=== PATIENT | female | born 1940 | race Caucasian/White ===

== ENCOUNTER 2019-04-12 08:43 | Observation (INO) | payer MEDICARE ==
[~2019-04-12] VITALS: Ht 167.6 cm; Wt 65.3 kg
[2019-04-12] VITALS (11 sets, daily range): BP systolic 143–172; BP diastolic 48–72
[~2019-04-12 08:43] MED LIST: ASPI-630 PO; GABA600T7 PO; GLIP10TA24 PO; GLIP5TAB22 PO; HYDROmorphone 2 MG/ML VIAL IV PRN; INSU100V13 SQ; IV RINGERS,LACTATED 1000ML 1,000 ML IV SCH; LIDOCAINE 1% PF 2 ML VIAL. ID PRN; LINA5TAB PO; LIPITOR80 MG PO; LOSA100T14 PO; METO-239 PO; MORPHINE SULFATE 2 MG/ML VIAL. IV PRN; ONDANSETRON PF 4 MG/2 ML VIAL. IV PRN; PROCHLORPERAZINE 10 MG/2 ML VIAL. IV PRN; fentaNYL PF VIAL 100 MCG/2 ML VIAL IV PRN
[2019-04-12] MEDS ORDERED: LIDOCAINE 2% JELLY 6ML IN APPLICATOR. ONE (09:00)
[2019-04-12] MEDS ORDERED: WATER FOR INJECTION STERILE IRR ONE (09:00)
[2019-04-12] MEDS ORDERED: MITOMYCIN IRR ONE (09:00)
[2019-04-12] MEDS ORDERED: IOHEXOL 300 MG/ML 50 ML VIAL. ONE (09:00)
[2019-04-12] MEDS ORDERED: LIDOCAINE 2% PF 5 ML VIAL. ONE (09:31)
[2019-04-12] MEDS ORDERED: PROPOFOL 20 ML IV ONE (09:31)
[2019-04-12] MEDS ORDERED: ONDANSETRON PF 4 MG/2 ML VIAL. ONE (09:31)
[2019-04-12] MEDS ORDERED: DEXAMETHASONE SOD PHOS 4 MG/ML VIAL ONE (09:31)
[2019-04-12] MEDS ORDERED: INSULIN LISPRO 100 UNIT/ML 3ML VIAL for OP,RR ONLY. SQ PRN (10:00)
[2019-04-12] MEDS ORDERED: ceFAZolin 1GM IVPB FOR OMNI 1 GM/50 ML BAG IV ONE (11:00)
[2019-04-12] MEDS ORDERED: fentaNYL PF VIAL 100 MCG/2 ML VIAL ONE ×2 (11:30→12:32)
[2019-04-12] MEDS ORDERED: SEVOFLURANE 61 TO 120 MINUTES. IH ONE (11:31)
[2019-04-12] MEDS ORDERED: POTASSIUM CL 20MEQ-0.45% NACL 1,000 ML IV PRN (12:01)
--- NOTE | 2019-04-12 12:01 | PDOC4 ---
OPERATIVE NOTE Date: Date: Apr 12, 2019 Pre-Op Diagnosis: TCCB, multi-focal Post-Op Diagnosis: same Procedure Performed: Cysto, TURBT (7cm) Surgeon: Michel Anesthesia Type: gen Blood Loss: 50cc Specimans Obtained: bladder tumor chips Findings: Multiple tumors predominately on L floor, L lateral wall, and L dome of bladder. Both UO's identified and were free of obvious involvement. The tumors were predominately pedunculated but did have thick bases. There was large amount of shallow ("cobble-stone") appearing budding tumors that were fulgurated. Complications: none Operative Note: Gen Anes; IV Abx, pt placed in lithotomy Cysto revealed above findings. A 24-Fr Resectoscope was inroduced and the tumors were resected, starting at the floor of the bladder and working up the lateral wall to the dome. There were 2- 3 dominant tumors on the L lat trigone and L lat wall that required loop resection. Care was taken to avoid perforation of the bladder wall. Muscle was clearly included in the specimen from the base of the largest trigonal tumor. Small and shallow tumors on lateral wall, dome , and R lateral wall were fulgurated only. All fragments were removed and collected. At conclusion, the bladder appeared hemostatic and there were no tumors identified. The scope was removed and bimanual exam revealed no masses palpable. A 20-Fr 3-way rose with the irrigation port plugged was introduced and the bladder drained. The drainage was clear. An instillation of 20 mg Mitomycin in 50 cc sterile flud was then introduced into the bladder and the rose was clamped. The drainage bag was connected and pt was the transferred to / She tolerated procedure well. Will unclamp rose in 1 hr and the observe. She may go home later today if clear. If needed, she will be kept overnight for observation. JOHN OLIVA MD Apr 12, 2019 12:01
[2019-04-12] MEDS ORDERED: oxyCODONE IR 5 MG TABLET PO PRN (12:15)
[2019-04-12] MEDS ORDERED: NALOXONE 0.4 MG/ML VIAL. IV PRN (12:15)
[2019-04-12] MEDS ORDERED: MORPHINE SULFATE 2 MG/ML VIAL. IV PRN (12:15)
[2019-04-12] MEDS ORDERED: HYDROcodone/APAP 5/325MG 1 TAB TABLET PO PRN (12:15)
[2019-04-12] MEDS ORDERED: ONDANSETRON PF 4 MG/2 ML VIAL. IV PRN ×3 (12:15)
[2019-04-12] MEDS ORDERED: 0.9 % SODIUM CHLORIDE 10 ML DISP.SYRIN. IV PRN (12:15)
[2019-04-12] MEDS ORDERED: PROCHLORPERAZINE 10 MG/2 ML VIAL. ONE (12:19)
[2019-04-12] MEDS: HYDROcodone/APAP 5/325MG 1 TAB TABLET PO PRN ×2 (14:38→21:20)
[2019-04-12] MEDS ORDERED: glipiZIDE 5 MG TABLET PO SCH ×2 (16:30→17:00)
--- NOTE | 2019-04-12 16:31 | PDOC ---
PROGRESS NOTE CHIEF COMPLAINT: no c/o's; is sitting up and eating SUBJECTIVE: ROS: ROS: RESPIRATORY: Shortness of breath denies. Cough denies. UROLOGY: Denies blood in urine. Denies difficulty urinating rose is draining well HPI: Duration: [] Quality: [] Severity: [] Site/Location: Yennifer is matthews colored without clots; she is not on CBI; [] OBJECTIVE: Vital Signs: Vital Signs Date Time Temp Pulse Resp B/P (MAP) Pulse Ox O2 Delivery O2 Flow Rate FiO2 04/12/19 15:15 67 18 161/65 (97) 97 Room Air 04/12/19 14:45 75 18 159/51 (87) 97 Room Air 04/12/19 14:38 Nasal Cannula 2.0 04/12/19 14:15 60 18 172/48 (89) 96 Room Air 04/12/19 14:00 58 18 171/49 (89) 97 Room Air 04/12/19 13:45 64 18 147/53 (84) 97 Room Air 04/12/19 13:30 62 18 171/51 (91) 96 Room Air 04/12/19 13:15 98.0 67 18 154/54 (87) 92 Room Air 98.0 04/12/19 13:10 Nasal Cannula 2.0 04/12/19 12:48 98.6 61 160/59 96 Room Air 98.6 Simple Mask 04/12/19 12:36 15 96 Room Air 04/12/19 12:33 98.6 63 15 160/44 94 98.6 04/12/19 12:18 98.6 53 15 157/67 100 98.6 04/12/19 12:03 Room Air 04/12/19 12:03 98.6 64 15 172/93 100 Simple Mask 10 98.6 04/12/19 09:58 97.0 65 16 132/52 96 Room Air 97.0 04/12/19 09:57 97 65 16 96 97.0 PHYSICAL EXAM: Physical Exam: General: Pleasant, no acute distress, well groomed Eyes: conjunctiva anicteric, eyes full range of motion ENT: moist oral mucosa, normal dentition Neck: Trachea midline, no masses Respiratory: unlabored breathing, not using accessory muscles, no crackles or wheezes Cardiovascular: Regular rate and rhythm, no peripheral edema Abdomen: nontender, nondistended, no hepatosplenomegaly, no masses Skin: no rashes or skin lesions on visualized skin Psych: normal mood, affect. Alert and oriented x 3. LABS: Laboratory Tests Test 04/12/19 10:47 04/12/19 12:12 Glucose (Fingerstick) 152 mg/dL (70-99) 130 mg/dL (70-99) MEDICATIONS: Current Medications Medications (Trade) Dose Ordered Sig/Sherri Start Time Stop Time Status Last Admin Dose Admin Acetaminophen/ Hydrocodone Bitart (Lortab 5/325) 2 tab PRN Q4HRS PRN 04/12/19 12:15 Cefazolin Sodium 50 ml @ 100 mls/hr 1X PREOP PRN 04/12/19 06:00 04/12/19 18:00 04/12/19 10:35 100 MLS/HR Dexamethasone Sodium Phosphate (Decadron) 4 mg STK-MED ONCE 04/12/19 09:31 04/12/19 09:32 DC Fentanyl Citrate (Fentanyl 2ml Vial) 100 mcg STK-MED ONCE 04/12/19 12:32 04/12/19 12:33 DC Hydromorphone HCl (Dilaudid) 0.5 mg PRN Q10MIN PRN 04/12/19 06:30 04/13/19 06:29 Insulin Human Lispro (HumaLOG VIAL for OP,RR ONLY) 0-10 units PRN Q1HR PRN 04/12/19 10:00 04/13/19 09:59 04/12/19 09:50 4 UNIT Iohexol (Omnipaque 300 Mg/ml) 50 ml STK-MED ONCE 04/12/19 09:00 04/12/19 10:00 DC Lidocaine HCl (Glydo (Lidocaine) Jelly) 6 raj STK-MED ONCE 04/12/19 09:00 04/12/19 10:00 DC Lidocaine HCl (Lidocaine Pf 2% Vial) 5 ml STK-MED ONCE 04/12/19 09:31 04/12/19 09:32 DC Lidocaine HCl (Xylocaine-Mpf 1% 2ml Vial) 2 ml 1X PRN PRN 04/12/19 06:30 04/13/19 06:29 Linagliptin (Tradjenta) 5 mg DAILY 04/13/19 09:00 UNV Metoprolol Succinate (Toprol Xl) 25 mg DAILY 04/13/19 09:00 UNV Mitomycin 20 mg/ Sterile Water 50 ml @ 1,000 mls/hr 1X ONCE 04/12/19 09:00 04/12/19 09:03 DC Morphine Sulfate (Morphine Sulfate) 1 mg PRN Q1HR PRN 04/12/19 12:15 Naloxone HCl (Narcan) 0.1 mg PRN Q2MIN PRN 04/12/19 12:15 Non-Formulary Medication (Atorvastatin Calcium (Lipitor)) 40 mg HS 04/12/19 21:00 UNV Non-Formulary Medication (Gabapentin ) 300 mg TID 04/12/19 21:00 UNV Non-Formulary Medication (Glipizide (Glipizide Er)) 10 mg DAILYBFRSUP 04/12/19 17:00 UNV Non-Formulary Medication (Insulin Detemir (Levemir)) 25 unit HS 04/12/19 21:00 UNV Non-Formulary Medication (Losartan Potassium ) 100 mg DAILY 04/13/19 09:00 UNV Ondansetron HCl (Zofran) 4 mg PRN Q6HRS PRN 04/12/19 12:15 Oxycodone HCl (Roxicodone) 5 mg PRN Q3HRS PRN 04/12/19 12:15 Potassium Chloride/Sodium Chloride 1,000 ml @ 100 mls/hr Q10H PRN 04/12/19 12:01 04/12/19 14:30 100 MLS/HR Prochlorperazine Edisylate (Compazine) 10 mg STK-MED ONCE 04/12/19 12:19 04/12/19 12:20 DC Propofol 20 ml @ As Directed STK-MED ONCE 04/12/19 09:31 04/12/19 09:32 DC Ringer's Solution 1,000 ml @ 30 mls/hr Q24H 04/12/19 06:16 04/12/19 18:15 04/12/19 06:16 30 MLS/HR Sevoflurane (Ultane) 60 ml STK-MED ONCE 04/12/19 11:31 04/12/19 11:32 DC Sodium Chloride (Normal Saline Flush) 3 ml QSHIFT PRN 04/12/19 12:15 ASSESSMENT & PLAN will resume her home meds excepting ASA; cont rose and likely be able to send home in am if urine clear to pink. JOHN OLIVA MD Apr 12, 2019 16:31
--- NOTE | 2019-04-12 19:23 | NUR ---
pt arrived to unit at 1310 via bed from PACU in stable condition on RA. pt has family at bedside with call light within reach. pt is oriented but drowsy. pt is rating her pain 5/10. pt has 3-way rose catheter in place- pt bladder was infused with mitomycin therefore pt is in chemo precautions and CNAs were notified not to empty rose catheter. proper chemo ppe in pt room to properly dispose of urine. will notify night RN of procedure for disposing of urine. will continue to monitor. Addendum: 04/12/19 at 1929 by AUSTEN CONTE RN RN received report from WICHO Payne in PACU
[2019-04-12] MEDS: ATORVASTATIN CALCIUM 40 MG TABLET. PO SCH (21:20)
[2019-04-12] MEDS: GABAPENTIN 300 MG CAPSULE. PO SCH (21:20)
[2019-04-12] MEDS: INSULIN GLARGINE 300 UNITS/3 ML INSULN.PEN. SQ SCH (21:23)
[2019-04-13 03:29] VITALS: BP 138/52
[2019-04-13 07:00] VITALS: BP 170/59
[2019-04-13] MEDS: LINAGLIPTIN 5 MG TABLET PO SCH (08:58)
[2019-04-13] MEDS: LOSARTAN POTASSIUM 50 MG TABLET. PO SCH (08:58)
[2019-04-13] MEDS: METOPROLOL SUCC 24HR ER 25 MG TAB.ER.24H. PO SCH (08:59)
[2019-04-13] MEDS: glipiZIDE 5 MG TABLET PO SCH (08:59)
[2019-04-13] MEDS: GABAPENTIN 300 MG CAPSULE. PO SCH ×3 (09:00→21:24)
[2019-04-13 11:00] VITALS: BP 170/65
--- NOTE | 2019-04-13 11:37 | PDOC ---
PROGRESS NOTE CHIEF COMPLAINT: no c/o; eating bkf; wants to go home SUBJECTIVE: ROS: ROS: RESPIRATORY: Shortness of breath denies. Cough denies. UROLOGY: Denies blood in urine. Denies difficulty urinating HPI: one day s/p TURBT large BT Quality: [] Severity: [] Site/Location: [] OBJECTIVE: Vital Signs: Vital Signs Date Time Temp Pulse Resp B/P (MAP) Pulse Ox O2 Delivery O2 Flow Rate FiO2 04/13/19 08:59 74 170/59 04/13/19 08:58 74 170/59 04/13/19 07:00 97.8 74 16 170/59 (96) 97 Room Air 97.8 04/13/19 03:29 98.6 80 18 138/52 (80) 94 Room Air 98.6 04/12/19 23:19 98.0 82 18 143/49 (80) 93 Room Air 98.0 04/12/19 22:20 16 Room Air 04/12/19 21:20 18 Room Air 04/12/19 20:00 Room Air 04/12/19 19:25 97.8 81 20 160/52 (88) 93 Room Air 97.8 04/12/19 17:15 80 18 161/60 (93) 97 Room Air 04/12/19 16:15 83 18 160/72 (101) 97 Room Air 04/12/19 15:15 67 18 161/65 (97) 97 Room Air 04/12/19 14:45 75 18 159/51 (87) 97 Room Air 04/12/19 14:38 Nasal Cannula 2.0 04/12/19 14:15 60 18 172/48 (89) 96 Room Air 04/12/19 14:00 Nasal Cannula 2.0 04/12/19 14:00 58 18 171/49 (89) 97 Room Air 04/12/19 13:45 64 18 147/53 (84) 97 Room Air 04/12/19 13:30 62 18 171/51 (91) 96 Room Air 04/12/19 13:15 98.0 67 18 154/54 (87) 92 Room Air 98.0 04/12/19 13:10 Nasal Cannula 2.0 04/12/19 12:48 98.6 61 160/59 96 Room Air 98.6 Simple Mask 04/12/19 12:36 15 96 Room Air 04/12/19 12:33 98.6 63 15 160/44 94 98.6 04/12/19 12:18 98.6 53 15 157/67 100 98.6 04/12/19 12:03 Room Air 04/12/19 12:03 98.6 64 15 172/93 100 Simple Mask 10 98.6 I & O Intake and Output 04/13/19 06:59 Intake Total 2148.4 ml Output Total 2025 ml Balance 123.4 ml Intake Oral 600 ml IV Total 1548.4 ml Output Urine Total 2025 ml PHYSICAL EXAM: Physical Exam: General: Pleasant, no acute distress, well groomed Eyes: conjunctiva anicteric, eyes full range of motion ENT: moist oral mucosa, normal dentition Neck: Trachea midline, no masses Respiratory: unlabored breathing, not using accessory muscles, no crackles or wheezes Cardiovascular: Regular rate and rhythm, no peripheral edema Abdomen: nontender, nondistended, no hepatosplenomegaly, no masses Skin: no rashes or skin lesions on visualized skin Psych: normal mood, affect. Alert and oriented x 3. urine in tubing is pink LABS: Laboratory Tests Test 04/12/19 09:42 04/12/19 10:47 04/12/19 12:12 04/12/19 16:28 Glucose (Fingerstick) 181 mg/dL (70-99) 152 mg/dL (70-99) 130 mg/dL (70-99) 133 mg/dL (70-99) Test 04/12/19 21:11 04/13/19 07:45 Glucose (Fingerstick) 344 mg/dL (70-99) 219 mg/dL (70-99) MEDICATIONS: Current Medications Medications (Trade) Dose Ordered Sig/Sherri Start Time Stop Time Status Last Admin Dose Admin Acetaminophen/ Hydrocodone Bitart (Lortab 5/325) 2 tab PRN Q4HRS PRN 04/12/19 12:15 Atorvastatin Calcium (Lipitor) 40 mg QHS 04/12/19 21:00 04/12/19 21:20 40 MG Cefazolin Sodium (Ancef 1gm Ivpb For Omni) 1 gm STK-MED ONCE 04/12/19 11:00 04/13/19 08:16 DC Dexamethasone Sodium Phosphate (Decadron) 4 mg STK-MED ONCE 04/12/19 09:31 04/12/19 09:32 DC Fentanyl Citrate (Fentanyl 2ml Vial) 100 mcg STK-MED ONCE 04/12/19 12:32 04/12/19 12:33 DC Gabapentin (Neurontin) 300 mg TID 04/12/19 21:00 04/13/19 09:00 300 MG Glipizide (Glucotrol) 5 mg DAILYWSUP 04/13/19 17:00 Hydromorphone HCl (Dilaudid) 0.5 mg PRN Q10MIN PRN 04/12/19 06:30 04/13/19 06:29 DC Insulin Glargine (Lantus) 25 units QHS 04/12/19 21:00 04/12/19 21:23 25 UNITS Insulin Human Lispro (HumaLOG VIAL for OP,RR ONLY) 0-10 units PRN Q1HR PRN 04/12/19 10:00 04/13/19 09:59 DC 04/12/19 09:50 4 UNIT Iohexol (Omnipaque 300 Mg/ml) 50 ml STK-MED ONCE 04/12/19 09:00 04/12/19 10:00 DC Lidocaine HCl (Glydo (Lidocaine) Jelly) 6 raj STK-MED ONCE 04/12/19 09:00 04/12/19 10:00 DC Lidocaine HCl (Lidocaine Pf 2% Vial) 5 ml STK-MED ONCE 04/12/19 09:31 04/12/19 09:32 DC Lidocaine HCl (Xylocaine-Mpf 1% 2ml Vial) 2 ml 1X PRN PRN 04/12/19 06:30 04/13/19 06:29 DC Linagliptin (Tradjenta) 5 mg DAILY 04/13/19 09:00 04/13/19 08:58 5 MG Losartan Potassium (Cozaar) 100 mg DAILY 04/13/19 09:00 04/13/19 08:58 100 MG Metoprolol Succinate (Toprol Xl) 25 mg DAILY 04/13/19 09:00 04/13/19 08:59 25 MG Mitomycin 20 mg/ Sterile Water 50 ml @ 1,000 mls/hr 1X ONCE 04/12/19 09:00 04/12/19 09:03 DC Morphine Sulfate (Morphine Sulfate) 1 mg PRN Q1HR PRN 04/12/19 12:15 Naloxone HCl (Narcan) 0.1 mg PRN Q2MIN PRN 04/12/19 12:15 Ondansetron HCl (Zofran) 4 mg PRN Q6HRS PRN 04/12/19 12:15 Oxycodone HCl (Roxicodone) 5 mg PRN Q3HRS PRN 04/12/19 12:15 Potassium Chloride/Sodium Chloride 1,000 ml @ 100 mls/hr Q10H PRN 04/12/19 12:01 04/12/19 14:30 100 MLS/HR Prochlorperazine Edisylate (Compazine) 10 mg STK-MED ONCE 04/12/19 12:19 04/12/19 12:20 DC Propofol 20 ml @ As Directed STK-MED ONCE 04/12/19 09:31 04/12/19 09:32 DC Ringer's Solution 1,000 ml @ 30 mls/hr Q24H 04/12/19 06:16 04/12/19 18:15 DC 04/12/19 06:16 30 MLS/HR Sevoflurane (Ultane) 60 ml STK-MED ONCE 04/12/19 11:31 04/12/19 11:32 DC Sodium Chloride (Normal Saline Flush) 3 ml QSHIFT PRN 04/12/19 12:15 ASSESSMENT & PLAN will dc rose and send home tariq voiding ret next Mon to office to discuss path and planning will need CT for staging next week cautioned her to avoid strenuous activities until seen in office; drink plent water Rx's Cipro and Lortab resume all prev meds except ASA JOHN OLIVA MD Apr 13, 2019 11:37
--- NOTE | 2019-04-13 11:40 | NUR ---
SS following for discharge planning. SS reviewed pt chart. Pt is from home with spouse and is currently on room air. No discharge needs noted at this time. SS will continue to follow for discharge planning.
[2019-04-13] MEDS: HYDROcodone/APAP 5/325MG 1 TAB TABLET PO PRN (12:17)
[2019-04-13 15:00] VITALS: BP 168/58
[2019-04-13] MEDS ORDERED: glipiZIDE 5 MG TABLET PO SCH (17:00)
--- NOTE | 2019-04-13 18:06 | PATHOLOGY ---
[facility] Accession Number: [id number] . 01 Material submitted: . bladder - BLADDER TUMOR . 01 Clinical history: . None provided. . 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 SEE COMMENT. (JPM:kun; 04/13/2019) QMS/04/13/2019 . 02 Comment: Sections of the bladder tumor transurethral resection reveal a papillary high grade urothelial carcinoma showing foci of necrosis and coagulation artifact. There are several foci of tumor invasion of lamina propria. There is no definitive muscularis propria present in the specimen. . The case is also examined by Dr. Dodson, who concurs with the diagnosis. (JPM:kun; 04/13/2019) . 02 Electronically signed: . Francisco Encinas MD, Pathologist NPI- [id number] . 01 Gross description: . Received in formalin labeled "Kalpesh, Jennifer, bladder tumor" is a 4.0 x 2.5 x 0.5 cm aggregate of pink-cabezas friable soft tissue fragments. The specimen is submitted entirely in cassettes A1-A2. ([facility] [place]; 04/12/2019) SYC/SYC . 02 Microscopic: . . . 02 Pathologist provided ICD-10: C67.9 . 02 CPT . 646660 Specimen Comment: A courtesy copy of this report has been sent to Specimen Comment: [phone], . Specimen Comment: Report sent to / DR ZARATE Performed at: [address], [place], [place] [id number] MD Arturo Watkins MD Phone: [phone] Performed at: 02 [facility] [address] [place], [place] [id number] MD Francisco Encinas MD Phone: [phone]
[2019-04-13 19:00] VITALS: BP 168/66
[2019-04-13] MEDS ORDERED: PHENAZOPYRIDINE 200 MG TABLET. PO PRN (19:30)
[2019-04-13] MEDS: ATORVASTATIN CALCIUM 40 MG TABLET. PO SCH (21:24)
[2019-04-13] MEDS: INSULIN GLARGINE 300 UNITS/3 ML INSULN.PEN. SQ SCH (21:29)
[2019-04-13 23:00] VITALS: BP 152/56
[2019-04-14 03:00] VITALS: BP 169/58
[2019-04-14 07:00] VITALS: BP 156/60
[2019-04-14] MEDS ORDERED: DEXTROSE 50% 25 GM / 50ML DISP.SYRIN. IV PRN (09:30)
[2019-04-14] MEDS: LOSARTAN POTASSIUM 50 MG TABLET. PO SCH (09:44)
[2019-04-14] MEDS: glipiZIDE 5 MG TABLET PO SCH (09:46)
[2019-04-14] MEDS: GABAPENTIN 300 MG CAPSULE. PO SCH (09:46)
[2019-04-14] MEDS: METOPROLOL SUCC 24HR ER 25 MG TAB.ER.24H. PO SCH (09:46)
[2019-04-14] MEDS: LINAGLIPTIN 5 MG TABLET PO SCH (09:47)
[2019-04-14] MEDS: HYDROcodone/APAP 5/325MG 1 TAB TABLET PO PRN (09:53)
[2019-04-14 10:10] LABS: BASO # 0.1 x10^3/uL (0.0-0.2); BASO % 1 % (0-3); EOS % 0 % (0-3); HEMATOCRIT 37.8 % (36.0-47.0); HEMOGLOBIN 12.4 g/dL (12.0-15.5); LYMPH # 1.6 x10^3/uL (1.0-4.8); LYMPH % 11 % (24-48); MEAN CORPUSCULAR HEMOGLOBIN 31 pg (25-35); MEAN CORPUSCULAR HGB CONC 33 g/dL (31-37); MEAN CORPUSCULAR VOLUME 94 fL (79-100); MONO # 1.6 x10^3/uL (0.0-1.1); MONO % 12 % (0-9); NEUT # 10.7 x10^3uL (1.8-7.7); NEUT % 77 % (31-73); PLATELET COUNT 149 x10^3/uL (140-400); RED BLOOD COUNT 4.04 x10^6/uL (3.50-5.40); RED CELL DISTRIBUTION WIDTH 14.6 % (11.5-14.5); WHITE BLOOD COUNT 13.9 x10^3/uL (4.0-11.0)
--- NOTE | 2019-04-14 10:14 | PDOC2 ---
CONSULT Date of Consult Date of Consult DATE: 04/14/19 TIME: 10:10 Reason for Consult Reason for Consult: med mx, DM Referring Physician Referring Physician: Gillian Identification/Chief Complaint Chief Complaint bladder tumors, hemtauria Source Source: Caregiver, Chart review, Patient History of Present Illness Reason for Visit: Very pleasant 78-year-old white female, lots of family support, admitted under urology service for bladder tumors and underwent cystoscopy. Her chief complaint was gross hematuria. Underwent the procedure, was planned for discharge yest erday but had some gross hematuria post op. Hence three-way bladder irrigation done. Urology advice is okay to DC once urine is clear pink and that is the case. Hemoglobin stable. Patient has no pain, ambulating well and keeping food down. Multiple family members at bedside, agreeable and wants to discharge and okay with that Gibson on chart No need for repeat H&H Has already follow-up with urology this Thursday which is 3 days from now Stop aspirin 81, taking it only for primary prophylaxis/prevention, hx of aneuryms in past BS high 200 to 300s, but recent stress, urology procedure Already on meds at home Continue this Discussed with family Past Medical History Cardiovascular: HTN Endocrine: Diabetes Past Surgical History Past Surgical History: Other (cysto 04/13/2019) Family History Family History: No Significant Social History No ALCOHOL: none Drugs: None Lives: with Family Domestic Violence: Neg Current Problem List Problem List Problems Medical Problems: (1) Bladder cancer Status: Acute (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 Status: Acute (3) Transitional cell carcinoma of bladder Status: Acute (4) Urothelial carcinoma of bladder Status: Acute Current Medications Current Medications Current Medications Cefazolin Sodium 50 ml @ 100 mls/hr 1X PREOP PRN IV PRIOR TO PROCEDURE Last administered on 04/12/19at 10:35; Start 04/12/19 at 06:00; Stop 04/12/19 at 18:00; Status DC Mitomycin 20 mg/ Sterile Water 50 ml @ 1,000 mls/hr 1X ONCE IRR ; Start 04/12/19 at 09:00; Stop 04/12/19 at 09:03; Status DC Ondansetron HCl (Zofran) 4 mg PRN Q6HRS PRN IV NAUSEA/VOMITING; Start 04/12/19 at 06:30; Stop 04/13/19 at 06:29; Status DC Fentanyl Citrate (Fentanyl 2ml Vial) 25 mcg PRN Q5MIN PRN IV MILD PAIN 1-3 Last administered on 04/12/19at 12:36; Start 04/12/19 at 06:30; Stop 04/13/19 at 06:29; Status DC Fentanyl Citrate (Fentanyl 2ml Vial) 50 mcg PRN Q5MIN PRN IV MODERATE TO SEVERE PAIN; Start 04/12/19 at 06:30; Stop 04/13/19 at 06:29; Status DC Morphine Sulfate (Morphine Sulfate) 1 mg PRN Q10MIN PRN IV SEVERE PAIN 7-10; Start 04/12/19 at 06:30; Stop 04/13/19 at 06:29; Status DC Ringer's Solution 1,000 ml @ 30 mls/hr Q24H IV Last administered on 04/12/19at 06:16; Start 04/12/19 at 06:16; Stop 04/12/19 at 18:15; Status DC Lidocaine HCl (Xylocaine-Mpf 1% 2ml Vial) 2 ml 1X PRN PRN ID IV START; Start 04/12/19 at 06:30; Stop 04/13/19 at 06:29; Status DC Hydromorphone HCl (Dilaudid) 0.5 mg PRN Q10MIN PRN IV SEV PAIN, Second choice; Start 04/12/19 at 06:30; Stop 04/13/19 at 06:29; Status DC Prochlorperazine Edisylate (Compazine) 5 mg PACU PRN PRN IV NAUSEA, MRX1 Last administered on 04/12/19at 12:27; Start 04/12/19 at 06:30; Stop 04/13/19 at 06:29; Status DC Dexamethasone Sodium Phosphate (Decadron) 4 mg STK-MED ONCE .ROUTE ; Start 04/12/19 at 09:31; Stop 04/12/19 at 09:32; Status DC Propofol 20 ml @ As Directed STK-MED ONCE IV ; Start 04/12/19 at 09:31; Stop 04/12/19 at 09:32; Status DC Lidocaine HCl (Lidocaine Pf 2% Vial) 5 ml STK-MED ONCE .ROUTE ; Start 04/12/19 at 09:31; Stop 04/12/19 at 09:32; Status DC Ondansetron HCl (Zofran) 4 mg STK-MED ONCE .ROUTE ; Start 04/12/19 at 09:31; Stop 04/12/19 at 09:32; Status DC Insulin Human Lispro (HumaLOG VIAL for OP,RR ONLY) 0-10 units PRN Q1HR PRN SQ PER PROTOCOL Last administered on 04/12/19at 09:50; Start 04/12/19 at 10:00; Stop 04/13/19 at 09:59; Status DC Iohexol (Omnipaque 300 Mg/ml) 50 ml STK-MED ONCE .ROUTE ; Start 04/12/19 at 09:00; Stop 04/12/19 at 10:00; Status DC Lidocaine HCl (Glydo (Lidocaine) Jelly) 6 raj STK-MED ONCE .ROUTE ; Start 04/12/19 at 09:00; Stop 04/12/19 at 10:00; Status DC Lidocaine HCl (Glydo (Lidocaine) Jelly) 6 raj STK-MED ONCE .ROUTE ; Start 04/12/19 at 09:00; Stop 04/12/19 at 10:00; Status DC Fentanyl Citrate (Fentanyl 2ml Vial) 100 mcg STK-MED ONCE .ROUTE ; Start 04/12/19 at 11:30; Stop 04/12/19 at 11:31; Status DC Sevoflurane (Ultane) 60 ml STK-MED ONCE IH ; Start 04/12/19 at 11:31; Stop 04/12/19 at 11:32; Status DC Oxycodone HCl (Roxicodone) 5 mg PRN Q3HRS PRN PO PAIN; Start 04/12/19 at 12:15 Naloxone HCl (Narcan) 0.1 mg PRN Q2MIN PRN IV SEE COMMENTS; Start 04/12/19 at 12:15 Sodium Chloride (Normal Saline Flush) 3 ml QSHIFT PRN IV AFTER MEDS AND BLOOD DRAWS; Start 04/12/19 at 12:15 Potassium Chloride/Sodium Chloride 1,000 ml @ 100 mls/hr Q10H PRN IV . Last administered on 04/12/19at 14:30; Start 04/12/19 at 12:01 Acetaminophen/ Hydrocodone Bitart (Lortab 5/325) 1 tab PRN Q4HRS PRN PO MILD PAIN 1-3 Last administered on 04/14/19at 09:53; Start 04/12/19 at 12:15 Acetaminophen/ Hydrocodone Bitart (Lortab 5/325) 2 tab PRN Q4HRS PRN PO MODERATE PAIN, SEVERE PAIN; Start 04/12/19 at 12:15 Morphine Sulfate (Morphine Sulfate) 1 mg PRN Q1HR PRN IV PAIN Last administered on 04/13/19at 13:17; Start 04/12/19 at 12:15 Ondansetron HCl (Zofran) 4 mg PRN Q6HRS PRN IV NAUESA, 1ST CHOICE; Start 04/12/19 at 12:15; Stop 04/13/19 at 11:22; Status DC Ondansetron HCl (Zofran) 4 mg PRN Q6HRS PRN IV Nausea, 2nd Choice; Start 04/12/19 at 12:15; Stop 04/13/19 at 11:22; Status DC Ondansetron HCl (Zofran) 4 mg PRN Q6HRS PRN IV Nausea/Vomiting, 3rd Choice Last administered on 04/13/19at 13:12; Start 04/12/19 at 12:15 Prochlorperazine Edisylate (Compazine) 10 mg STK-MED ONCE .ROUTE ; Start 04/12/19 at 12:19; Stop 04/12/19 at 12:20; Status DC Fentanyl Citrate (Fentanyl 2ml Vial) 100 mcg STK-MED ONCE .ROUTE ; Start 04/12/19 at 12:32; Stop 04/12/19 at 12:33; Status DC Linagliptin (Tradjenta) 5 mg DAILY PO Last administered on 04/14/19at 09:47; Start 04/13/19 at 09:00 Metoprolol Succinate (Toprol Xl) 25 mg DAILY PO Last administered on 04/14/19at 09:46; Start 04/13/19 at 09:00 Atorvastatin Calcium (Lipitor) 40 mg QHS PO Last administered on 04/13/19at 21:24; Start 04/12/19 at 21:00 Gabapentin (Neurontin) 300 mg TID PO Last administered on 04/14/19at 09:46; Start 04/12/19 at 21:00 Glipizide (Glucotrol) 5 mg DAILY PO Last administered on 04/14/19at 09:46; Start 04/13/19 at 09:00 Glipizide (Glucotrol) 5 mg BIDBFRMEAL PO ; Start 04/12/19 at 16:30; Stop 04/12/19 at 16:34; Status DC Insulin Glargine (Lantus) 25 units QHS SQ Last administered on 04/13/19at 21:29; Start 04/12/19 at 21:00 Losartan Potassium (Cozaar) 100 mg DAILY PO Last administered on 04/14/19at 09:44; Start 04/13/19 at 09:00 Glipizide (Glucotrol) 10 mg DAILYBFRSUP PO ; Start 04/12/19 at 17:00; Status Cancel Glipizide (Glucotrol) 5 mg DAILYWSUP PO Last administered on 04/13/19at 16:54; Start 04/13/19 at 17:00 Cefazolin Sodium (Ancef 1gm Ivpb For Omni) 1 gm STK-MED ONCE IV ; Start 04/12/19 at 11:00; Stop 04/13/19 at 08:16; Status DC Phenazopyridine HCl (Pyridium) 200 mg PRN TID PRN PO URINARY PAIN; Start 04/13/19 at 19:30 Insulin Human Lispro (HumaLOG) 0-9 UNITS TIDWMEALS SQ ; Start 04/14/19 at 12:00 Dextrose (Dextrose 50%-Water Syringe) 12.5 gm PRN Q15MIN PRN IV SEE COMMENTS; Start 04/14/19 at 09:30 Active Scripts Active Reported Glipizide Er (Glipizide) 10 Mg Tab.er.24 10 Mg PO DAILYBFRSUP Glipizide Er (Glipizide) 5 Mg Tab.er.24 5 Mg PO DAILY Levemir (Insulin Detemir) 100 Unit/1 Ml Vial 25 Unit SQ HS Tradjenta (Linagliptin) 5 Mg Tablet 5 Mg PO DAILY Metoprolol Succinate ( Xl ) (Metoprolol Succinate) 25 Mg Tab.er.24h 25 Mg PO DAILY Gabapentin 600 Mg Tablet 300 Mg PO TID Losartan Potassium 100 Mg Tablet 100 Mg PO DAILY Lipitor (Atorvastatin Calcium) 80 Mg Tablet 40 Mg PO HS Aspirin 81 Mg Tab.chew 81 Mg PO Q3DAYS Allergies Allergies: Coded Allergies: liraglutide (Verified Adverse Reaction, Intermediate, Nausea and Vomiting, 04/12/19) ROS Review of System A 14 point ROS was completed with the following noted as positive: Other systems reviewed and negative. \CONSTITUTIONAL: No fever or chills EYES: No recent changes SKIN: No rash or itching CARDIOVASCULAR: No chest pain, syncope, palpitations, or edema RESPIRATORY: No SOB or cough GASTROINTESTINAL: No nausea, vomiting or abdominal pain NEUROLOGICAL: No headaches or weakness ENDOCRINE: No cold or heat intolerance GENITOURINARY: No urgency or frequency of urination MUSCULOSKELETAL: No back pain or joint pain LYMPHATICS: No enlarged lymph nodes PSYCHIATRIC: No anxiety or depression Physical Exam General: Alert, Oriented X3, Cooperative, No acute distress HEENT: PERRLA, Mucous membr. moist/pink Lungs: Clear to auscultation, Normal air movement Heart: Regular rate, Normal S1, Normal S2 Abdomen: Normal bowel sounds, Soft, No tenderness, No hepatosplenomegaly, No masses Extremities: No clubbing, No cyanosis, No edema, Normal pulses, No tenderness/swelling Skin: No rashes, No breakdown Neuro: Normal gait, Normal speech, Normal tone, Sensation intact, Reflexes 2+ Psych/Mental Status: Mental status NL, Mood NL Vitals VITALS Vital Signs Date Time Temp Pulse Resp B/P (MAP) Pulse Ox O2 Delivery O2 Flow Rate FiO2 04/14/19 09:53 Room Air 04/14/19 09:46 93 156/60 04/14/19 07:00 98.4 18 95 98.4 04/13/19 13:19 2.0 Labs Labs Laboratory Tests Test 04/12/19 10:47 04/12/19 12:12 04/12/19 16:28 04/12/19 21:11 Glucose (Fingerstick) 152 mg/dL (70-99) 130 mg/dL (70-99) 133 mg/dL (70-99) 344 mg/dL (70-99) Test 04/13/19 07:45 04/13/19 11:19 04/13/19 16:58 04/13/19 20:37 Glucose (Fingerstick) 219 mg/dL (70-99) 383 mg/dL (70-99) 313 mg/dL (70-99) 315 mg/dL (70-99) Test 04/14/19 08:02 Glucose (Fingerstick) 333 mg/dL (70-99) Laboratory Tests Test 04/13/19 11:19 04/13/19 16:58 04/13/19 20:37 04/14/19 08:02 Glucose (Fingerstick) 383 mg/dL (70-99) 313 mg/dL (70-99) 315 mg/dL (70-99) 333 mg/dL (70-99) Assessment/Plan Assessment/Plan Bladder tumors, gross hematuria, status post cystoscopy 04/13/2019 DM 2, uncontrolled-recent stress from urologic procedure Hypertension, control Plan Okay for home today, follow-up urology Thursday already scheduled Hold aspirin 81 Patient seen and examined, discussed with multiple family members at bedside LARISA POST MD Apr 14, 2019 10:14
[2019-04-14 10:31] LABS: CALCIUM 9.1 mg/dL (8.5-10.1); POTASSIUM 4.8 mmol/L (3.5-5.1)
[2019-04-14 10:35] LABS: ALBUMIN/GLOBULIN RATIO 0.9 (1.0-1.7); TOTAL BILIRUBIN 1.3 mg/dL (0.2-1.0); TOTAL PROTEIN 6.5 g/dL (6.4-8.2)
[2019-04-14] MEDS ORDERED: ONDA4TAB7 PO (10:51)
[2019-04-14] MEDS ORDERED: TRAM50TA PO (10:51)
[2019-04-14 11:00] VITALS: BP 119/51
[2019-04-14] MEDS ORDERED: traMADol 50 MG TABLET PO PRN (11:00)
[2019-04-14] MEDS ORDERED: ONDANSETRON ODT 4 MG TAB.RAPDIS. PO PRN ×2 (11:00)
[2019-04-14] MEDS ORDERED: ONDANSETRON ODT 4 MG TAB.RAPDIS. PO ONE (11:00)
[2019-04-14] MEDS ORDERED: traMADol 50 MG TABLET PO ONE (11:00)
[2019-04-14] MEDS ORDERED: POTASSIUM CL 20MEQ-0.45% NACL 1,000 ML IV SCH (12:00)
[2019-04-14] MEDS ORDERED: INSULIN LISPRO 300 UNITS/3 ML INSULN.PEN. SQ SCH (12:00)
--- NOTE | 2019-04-14 12:22 | NUR ---
Pt was discharged to home at 1200 today in stable condition with all personal belongings after reviewing all pertinent information including education, medications, follow up and at home care. Pt was escorted by staff and family to the main exit where her drove her home.
== END 2019-04-14 12:00 | disposition home or self-care (01) ==
LOC: SURG 08:43 → 4 NORTH 12:55
PROVIDERS: ADMIT Urology; ATTEND Urology
DX: R31.0 Gross hematuria (principal); E11.9 Type 2 diabetes mellitus without complications
CPT/HCPCS: 36415; 52240; 80053; 82962; 85025; 88307; 96372; 96374; 96375; A7015; G0378; G0379; J0690; J0780; J1100; J1815; J2001; J2270; J2405; J2704; J3010; J9280; Q9967

== ENCOUNTER 2019-05-16 11:13 | Day surgery (SDC) | payer MEDICARE ==
[~2019-05-16] VITALS: Ht 167.6 cm; Wt 62.6 kg
[~2019-05-16 11:13] MED LIST changes: +GABA300C18 PO; +LIDOCAINE 2% JELLY 6ML IN APPLICATOR. ONE; +ONDA4TAB7 PO; +TRAM50TA PO
[2019-05-16] MEDS ORDERED: GLIP5TAB10 PO (12:07)
[2019-05-16] MEDS ORDERED: LIDOCAINE 2% PF 5 ML VIAL. ONE (12:38)
[2019-05-16] MEDS ORDERED: PROPOFOL 20 ML IV ONE (12:38)
[2019-05-16] MEDS ORDERED: FAMOTIDINE 20 MG/2 ML VIAL ONE (12:38)
[2019-05-16] MEDS ORDERED: DEXAMETHASONE SOD PHOS 4 MG/ML VIAL ONE (12:39)
[2019-05-16] MEDS ORDERED: ONDANSETRON PF 4 MG/2 ML VIAL. ONE (12:39)
[2019-05-16] MEDS ORDERED: fentaNYL PF VIAL 100 MCG/2 ML VIAL ONE (12:39)
[2019-05-16] MEDS: INSULIN LISPRO 100 UNIT/ML 3ML VIAL for OP,RR ONLY. SQ PRN ×2 (12:52→14:08)
[2019-05-16] MEDS ORDERED: 0.9 % SODIUM CHLORIDE 20 ML VIAL. IJ ONE (13:26)
[2019-05-16] MEDS ORDERED: DESFLURANE 31 TO 60 MINUTES IH ONE (13:30)
[2019-05-16] MEDS ORDERED: IV NORMAL SALINE 1000ML BAG 1,000 ML IV SCH (13:38)
[2019-05-16] MEDS ORDERED: IV RINGERS,LACTATED 1000ML 1,000 ML IV SCH (13:38)
--- NOTE | 2019-05-16 13:38 | PDOC4 ---
OPERATIVE NOTE Date: Date: May 16, 2019 Pre-Op Diagnosis: hx TCCB Post-Op Diagnosis: same Procedure Performed: cysto, multiple bladder bx's/fulguration Surgeon: chelsie Anesthesia Type: gen Blood Loss: min Specimans Obtained: bx's (10-12) Findings: indurated areas on L lat wall and roof of bladder; prev resection sites healing; no mass on biman Complications: neg Operative Note: with pt in lithotomy pos'n, she was admin'd iv abx cysto performed. there were indurated areas on L lat wall and dome of bladder. UO's unrem. multiple sites of prior resection identified. Cold cup bx forceps were then used to take bx's as deep as possible from the dome, both lateral rodney, and floor of bladder. The sites were then fulgurated with the Bugbee cautery. After all bleeding was controlled, the scope was removed and a rose was placed. The return was slightly pink and the rose irrigated easily. The pt was then awakened and transferred to Disp: rose for one hr then dc if clear. Home with Rx Cipro and Lortab. Call for path results end of this week. JOHN OLIVA MD May 16, 2019 13:38
[2019-05-16] MEDS ORDERED: NALOXONE 0.4 MG/ML VIAL. IV PRN ×2 (13:45)
[2019-05-16] MEDS ORDERED: ONDANSETRON PF 4 MG/2 ML VIAL. IV PRN (13:45)
[2019-05-16] MEDS ORDERED: HYDROcodone/APAP 5/325MG 1 TAB TABLET PO PRN ×2 (13:45)
[2019-05-16] MEDS ORDERED: PROCHLORPERAZINE 10 MG/2 ML VIAL. IV PRN (13:45)
[2019-05-16] MEDS ORDERED: PROCHLORPERAZINE 25 MG SUPP.RECT. PR PRN (13:45)
[2019-05-16] MEDS ORDERED: MORPHINE SULFATE 2 MG/ML VIAL. IV PRN (13:45)
[2019-05-16 15:00] VITALS: BP 170/66
--- NOTE | 2019-05-17 17:06 | PATHOLOGY ---
[facility] Accession Number: [id number] . 01 Material submitted: . bladder - BLADDER BIOPSY . 01 Clinical history: . Bladder cancer . 02 Diagnosis: Urinary bladder biopsies: - Foci of necrosis and acute inflammation, scarring, chronic inflammation, and focal foreign body granulomatous reaction. (JPM:title supervisor; 05/17/2019) MBR/05/17/2019 . 02 Comment: Sections of the urinary bladder biopsy reveal urothelial mucosa, lamina propria, and underlying smooth muscle. There are foci of necrosis and acute inflammation of the bladder wall. Other areas show scarring of the bladder wall with chronic inflammation, admixed eosinophils, and focal foreign body granulomatous reaction. The findings are consistent with previous resection sites. There is no evidence of malignancy. (JPM:title supervisor; 05/17/2019) . 02 Electronically signed: . Francisco Encinas MD, Pathologist NPI- [id number] . 01 Gross description: . The specimen is received in formalin, labeled "Jennifer Posey, bladder biopsy", are multiple irregular fragment of cabezas-brown soft tissue measuring 0.8 x 0.5 x 0.2 cm in aggregate, entirely submitted in A1. ([facility]; 05/16/2019) SHS/SHS . 02 Pathologist provided ICD-10: N30.00, N30.20 . 02 CPT . 980311 Specimen Comment: A courtesy copy of this report has been sent to Specimen Comment: [phone], . Specimen Comment: Report sent to / DR ZARATE Performed at: [address], [place], [place] [id number] MD Arturo Watkins MD Phone: [phone] Performed at: 02 [facility] [address] [place], [place] [id number] MD Francisco Encinas MD Phone: [phone]
== END 2019-05-16 15:35 | disposition home or self-care (01) ==
LOC: SURG 11:13
PROVIDERS: ATTEND Urology
DX: N30.20 Other chronic cystitis without hematuria (principal); N30.00 Acute cystitis without hematuria; E11.9 Type 2 diabetes mellitus without complications; F17.210 Nicotine dependence, cigarettes, uncomplicated; Z98.890 Other specified postprocedural states; Z79.84 Long term (current) use of oral hypoglycemic drugs
CPT/HCPCS: 52204; 82962; 88305; A7015; J0690; J1100; J2001; J2405; J2704; J3010; J3490

== ENCOUNTER → 2019-12-22 | Outpatient (CLI) | payer MEDICARE ==
[~2019-12-22] MED LIST changes: +CONTRAST GIVEN. MC PRN; +GLIP5TAB10 PO; -HYDROmorphone 2 MG/ML VIAL IV PRN; +IOHEXOL 300 MG/ML 100ML VIAL. IV ONE; -IV RINGERS,LACTATED 1000ML 1,000 ML IV SCH; -LIDOCAINE 1% PF 2 ML VIAL. ID PRN; -LIDOCAINE 2% JELLY 6ML IN APPLICATOR. ONE; -MORPHINE SULFATE 2 MG/ML VIAL. IV PRN; -ONDANSETRON PF 4 MG/2 ML VIAL. IV PRN; -PROCHLORPERAZINE 10 MG/2 ML VIAL. IV PRN; -fentaNYL PF VIAL 100 MCG/2 ML VIAL IV PRN
--- NOTE | 2019-12-22 17:43 | KCIC ---
PQRS Compliance Statement: One or more of the following individualized dose reduction techniques were utilized for this examination: 1. Automated exposure control 2. Adjustment of the mA and/or kV according to patient size 3. Use of iterative reconstruction technique CT ABDOMEN PELVIS WO/W Clinical Indication: Malignant neoplasm of bladder, surgery 2019. Pelvic pain, hematuria. Comparison: CT abdomen and pelvis with and without contrast April 21, 2019. TECHNIQUE: Helical CT imaging of the abdomen and pelvis is performed precontrast. Helical CT imaging of the abdomen is performed after 80 cc of Omnipaque 300 IV contrast during nephrographic phase. Helical CT imaging of the abdomen and pelvis is then performed delay phase. Findings: Punctate nonobstructing left renal calculus. Small left renal cyst is stable. No follow-up imaging is recommended per consensus recommendations based on imaging criteria. There is moderate left hydroureteronephrosis. The ureter is dilated down to the ureterovesicular junction. There is no right hydronephrosis. The kidneys enhance symmetrically. Ureters are incompletely contrast opacified on the delay image. Right ureter is normal. On the delay image there appears to be a soft tissue density filling defect in the urinary bladder on the left at the location of the ureterovesicular junction. The filling defect measures on the order of 1.5 x 3.4 cm, image 176 of series 4. This finding could be bladder malignancy although other etiologies such as blood clot are also possible. Thickening at the dome of the bladder is also seen, image 31. Recurrent tumor or sequela of therapy are considerations for this finding. No consolidation in the lung bases is seen. There are reticular opacities. The cardiac size is normal. Calcified granulomas in the liver and the spleen. The gallbladder, pancreas, and adrenal glands are normal. Severe atherosclerotic calcification of the abdominal aorta, no aneurysm. The stomach is unremarkable. There is no dilated small bowel. The appendix is normal. There is moderate distal colon diverticulosis. Scattered stool in the colon. No colon wall thickening. No abdominal adenopathy or free fluid. Uterus unremarkable. No pelvic free fluid. Stable old mild compression deformity superior endplate of L4. IMPRESSION: 1. There is new moderate left hydroureteronephrosis. There is a filling defect in the urinary bladder at the location of the ureterovesicular junction that is likely producing the obstruction and is suspicious for bladder malignancy. 2. There is thickening at the dome of the bladder that could be recurrent tumor versus sequela of therapy. 3. Punctate nonobstructing left renal calculus. 4. There is no adenopathy in the abdomen or pelvis. 5. Moderate distal colon diverticulosis. Electronically signed by: Matt Roque MD (12/22/2019 5:41 PM) [id number]
== END | disposition home or self-care (01) ==
LOC: KCIC CT 13:40
PROVIDERS: ATTEND Urology
DX: K57.30 Diverticulosis of large intestine without perforation or abscess without bleeding (principal); N20.0 Calculus of kidney; N28.1 Cyst of kidney, acquired; N13.30 Unspecified hydronephrosis; I70.0 Atherosclerosis of aorta; K75.3 Granulomatous hepatitis, not elsewhere classified
CPT/HCPCS: 74178; 82565; Q9967